=== PATIENT | female | born 1990 | race Two or more races ===

== ENCOUNTER 2020-02-07 13:10 | Outpatient (CLI) | payer OTHER ==
[~2020-02-07] VITALS: Ht 157.5 cm; Wt 93.2 kg
[2020-02-07 13:26] VITALS: BP 127/78
[2020-02-07] MEDS ORDERED: LACTATED RINGERS 1,000 ML IV SCH (14:00)
[2020-02-07 14:40] LABS: MICROSCOPIC INDICATED
[2020-02-07] MEDS ORDERED: NITR100C56 PO (18:07)
== END 2020-02-07 17:30 | disposition home or self-care (01) ==
LOC: LDOP 13:10
PROVIDERS: ATTEND Obstetrics & Gynecology
DX: O26.893 Other specified pregnancy related conditions, third trimester (principal); R10.9 Unspecified abdominal pain; Z3A.28 28 weeks gestation of pregnancy
CPT/HCPCS: 59025; 81001; 87086; 96360; 96361; J7120

== ENCOUNTER 2020-03-17 12:12 | Outpatient (CLI) | payer OTHER ==
[~2020-03-17] VITALS: Ht 160 cm; Wt 94.1 kg
[~2020-03-17 12:12] MED LIST: NITR100C56 PO
[2020-03-17 12:42] LABS: BASOPHILS % (AUTO) 0 % (0-1); EOSINOPHILS % (AUTO) 1 % (1-7); LYMPHOCYTES % (AUTO) 20 % (22-44); MEAN CORPUSCULAR HEMOGLOBIN 29.3 pg (27.0-34.8); MEAN CORPUSCULAR HGB CONC 33.5 g/dL (32.4-35.8); MEAN PLATELET VOLUME 9.9 fL (7.4-10.4); MONOCYTES % (AUTO) 8 % (2-9); NEUTROPHILS % (AUTO) 71 % (42-75); PLATELET COUNT 195 x10^3/uL (130-400); RED BLOOD COUNT 4.88 x10^6/uL (3.82-5.3); RED CELL DISTRIBUTION WIDTH 13.8 % (9.6-15.2)
[2020-03-17 12:47] VITALS: BP 121/78
[2020-03-17 12:51] LABS: MICROSCOPIC AUTO
[2020-03-17 12:55] LABS: ALANINE AMINOTRANSFERASE 32 U/L (12-78); ALBUMIN 2.9 g/dL (3.4-5.0); ANION GAP 8 mmol/L (5-15); CALCIUM 9.4 mg/dL (8.5-10.1); CHLORIDE 107 mmol/L (98-107); CREATININE 0.63 mg/dL (0.55-1.02)
[2020-03-17 12:57] LABS: ALKALINE PHOSPHATASE 125 U/L (45-117); BILIRUBIN,TOTAL 0.2 mg/dL (0.2-1.0); TOTAL PROTEIN 7.7 g/dL (6.4-8.2)
[2020-03-17 12:57] LABS: CREATININE,URINE RANDOM 18.6 mg/dL
[2020-03-17 12:58] LABS: BILIRUBIN, DIRECT < 0.1 mg/dL (0.1-0.2)
[2020-03-17 13:10] LABS: MD NO
[2020-03-17] MEDS ORDERED: PREN1TAB60 PO (13:32)
== END 2020-03-17 13:55 | disposition home or self-care (01) ==
LOC: LDOP 12:12
PROVIDERS: ATTEND Obstetrics & Gynecology
DX: O16.3 Unspecified maternal hypertension, third trimester (principal); Z3A.33 33 weeks gestation of pregnancy
CPT/HCPCS: 36415; 59025; 80053; 81001; 82248; 82570; 84156; 84550; 85025

== ENCOUNTER 2020-04-20 07:19 | Outpatient (CLI) | payer OTHER ==
[~2020-04-20] VITALS: Ht 157.5 cm; Wt 96.8 kg
[~2020-04-20 07:19] MED LIST changes: +PREN1TAB60 PO
[2020-04-20 07:39] VITALS: BP 125/90
[2020-04-20 07:49] LABS: MICROSCOPIC INDICATED
[2020-04-21] MEDS ORDERED: IBUP-1222 PO (15:04)
== END 2020-04-20 08:30 | disposition home or self-care (01) ==
LOC: LDOP 07:19
PROVIDERS: ATTEND Physician Assistant
DX: O26.893 Other specified pregnancy related conditions, third trimester (principal); R10.9 Unspecified abdominal pain; Z3A.38 38 weeks gestation of pregnancy
CPT/HCPCS: 59025; 81001; 87086

== ENCOUNTER 2020-04-20 12:31 | Inpatient (IN) | payer OTHER ==
[~2020-04-20] VITALS: Ht 157.5 cm; Wt 96.8 kg
[2020-04-20 13:13] VITALS: BP 134/85
[2020-04-20] MEDS ORDERED: NEWBORN KIT ONE (14:23)
[2020-04-20] MEDS ORDERED: OXYTOCIN 30U/ 0.9% NaCL 500ML 500 ML ONE ×2 (14:23→16:17)
[2020-04-20] MEDS ORDERED: METOCLOPRAMIDE 5 MG/ML, 2ML IVPush PRN (14:30)
[2020-04-20] MEDS ORDERED: ONDANSETRON 2MG/ML, 2ML IVPush PRN (14:30)
[2020-04-20] MEDS ORDERED: SODIUM CITRATE/CITRIC ACID 30 ML UDC PO PRN (14:30)
[2020-04-20] MEDS ORDERED: TERBUTALINE 1 MG/ML, 1ML SQ PRN (14:30)
[2020-04-20] MEDS ORDERED: FENTANYL PF 100 MCG/2ML IV PRN (14:30)
[2020-04-20] MEDS ORDERED: LACTATED RINGERS 1,000 ML IV SCH (14:30)
[2020-04-20] MEDS ORDERED: FENTANYL PF 100 MCG/2ML IVPush PRN (14:30)
[2020-04-20] MEDS ORDERED: D5%-LACTATED RINGERS 1,000 ML IV SCH (14:30)
[2020-04-20] MEDS ORDERED: OXYTOCIN 30U/ 0.9% NaCL 500ML 500 ML IV ONE (14:30)
[2020-04-20] MEDS ORDERED: TERBUTALINE 1 MG/ML, 1ML IVPush PRN (14:30)
[2020-04-20] MEDS ORDERED: MISOPROSTOL 200 MCG TABLET ONE (14:34)
[2020-04-20] MEDS ORDERED: LIDOCAINE 1%, 20ML ONE (14:34)
[2020-04-20 14:48] LABS: BASOPHILS % (AUTO) 0 % (0-1); EOSINOPHILS % (AUTO) 0 % (1-7); LYMPHOCYTES % (AUTO) 15 % (22-44); MEAN CORPUSCULAR HEMOGLOBIN 29.2 pg (27.0-34.8); MEAN CORPUSCULAR HGB CONC 33.8 g/dL (32.4-35.8); MEAN PLATELET VOLUME 10.4 fL (7.4-10.4); MONOCYTES % (AUTO) 6 % (2-9); NEUTROPHILS % (AUTO) 79 % (42-75); PLATELET COUNT 197 x10^3/uL (130-400); RED BLOOD COUNT 4.81 x10^6/uL (3.82-5.3); RED CELL DISTRIBUTION WIDTH 14.1 % (9.6-15.2)
[2020-04-20 15:12] LABS: MD NO
[2020-04-20] MEDS ORDERED: OXYcodone/APAP 5/325MG TABLET PO PRN ×2 (16:00)
[2020-04-20] MEDS ORDERED: METHYLERGONOVINE 0.2 MG/ML IM PRN (16:00)
[2020-04-20] MEDS ORDERED: ACETAMINOPHEN 325 MG TABLET PO PRN ×2 (16:00)
[2020-04-20] MEDS ORDERED: SIMETHICONE 80 MG CHEW TAB PO PRN (16:00)
[2020-04-20] MEDS ORDERED: DIPH,PERTUSS(ACELL),TET VAC/PF NC IM-VACC PRN (16:00)
[2020-04-20] MEDS: OXYTOCIN 30U/ 0.9% NaCL 500ML 500 ML IV SCH (16:19)
[2020-04-20 17:30] VITALS: BP 119/78
[2020-04-20] MEDS: DOCUSATE 100 MG CAPSULE PO PRN (19:58)
[2020-04-20] MEDS: IBUPROFEN 600 MG TABLET PO PRN (19:58)
[2020-04-20 20:03] VITALS: BP 139/93
[2020-04-20 21:30] VITALS: BP 126/85
[2020-04-20 23:52] LABS: BASOPHILS % (AUTO) 1 % (0-1); EOSINOPHILS % (AUTO) 0 % (1-7); LYMPHOCYTES % (AUTO) 10 % (22-44); MEAN CORPUSCULAR HGB CONC 33.3 g/dL (32.4-35.8); MONOCYTES % (AUTO) 6 % (2-9); NEUTROPHILS % (AUTO) 84 % (42-75); PLATELET COUNT 159 x10^3/uL (130-400); RED BLOOD COUNT 4.33 x10^6/uL (3.82-5.3); RED CELL DISTRIBUTION WIDTH 13.8 % (9.6-15.2)
[2020-04-20 23:57] LABS: MD NO
[2020-04-21 00:35] VITALS: BP 133/87
[2020-04-21] MEDS: OXYTOCIN 30U/ 0.9% NaCL 500ML 500 ML IV SCH ×2 (02:00→12:00)
[2020-04-21 04:20] VITALS: BP 118/81
[2020-04-21 08:53] VITALS: BP 127/91
[2020-04-21] MEDS ORDERED: PRENATAL VIT/IRON/FA 1 EACH TABLET PO SCH (09:00)
[2020-04-21] MEDS: DOCUSATE 100 MG CAPSULE PO PRN (09:05)
[2020-04-21] MEDS: IBUPROFEN 600 MG TABLET PO PRN (09:05)
[2020-04-21 12:10] VITALS: BP 122/89
[2020-04-21] MEDS ORDERED: IBUP-1222 PO (15:04)
== END 2020-04-21 19:05 | disposition home or self-care (01) | DRG 807 ==
LOC: LDOP 12:31 → LDIP 14:23 → 2NW 17:22
PROVIDERS: ADMIT Obstetrics & Gynecology; ATTEND Obstetrics & Gynecology
PROC: 10E0XZZ Delivery of Products of Conception, External Approach (ICD-10-PCS; principal; 2020-04-20)
PROC: 3E0P7VZ Introduction of Hormone into Female Reproductive, Via Natural or Artificial Opening (ICD-10-PCS; 2020-04-20)
DX: O62.2 Other uterine inertia (principal); Z37.0 Single live birth; Z3A.38 38 weeks gestation of pregnancy; Z20.828 Contact with and (suspected) exposure to other viral communicable diseases
CPT/HCPCS: 36415; 85025; 86592; 86850; 86900; 87635; G0378; J2590; J7120